=== PATIENT | female | born 1940 | race Hispanic/Latino ===

== ENCOUNTER 2020-09-05 13:20 | Outpatient (CLI) | payer MEDICARE | END 2020-09-05 13:21 | disposition home or self-care (01) | LOC: BRENFP 13:20 | PROVIDERS: ATTEND Family Medicine | DX: R06.00 Dyspnea, unspecified (principal) | CPT/HCPCS: 71046 ==

== ENCOUNTER 2020-10-18 15:08 | Outpatient (CLI) | payer MEDICARE ==
[2020-10-18 16:51] LABS: #Basophils 0.1 10x3/uL (0.0-0.2); #Eosinphils 0.2 10x3/uL (0.0-0.5); #Monocytes 0.9 10x3/uL (0.0-1.1); #Neutrophils 4.8 10x3/uL (1.5-8.4); %Basophils 1.2 % (0.0-2.0); %Eosinophils 2.2 % (0.0-6.0); %Lymphocytes 23.9 % (18.0-47.0); %Monocytes 10.9 % (0.0-10.0); %Neutrophils 61.5 % (40.0-75.0); Hemoglobin 14.2 g/dL (12.0-15.5); Mean Corpuscular HGB CONC 32.4 g/dL (32.0-36.0); Mean Corpuscular Hemoglobin 30.2 pg (27.0-33.0); Mean Corpuscular Volume 93.2 fl (81.6-98.3); Mean Platelet Volume 9.9 fl (7.4-10.4); Platelet Count 379 10x3/uL (150-450); RBC Distribution Width 12.6 % (11.5-14.5); White Blood Cell (WBC) Count 7.8 10x3/uL (3.5-10.5)
[2020-10-18 17:06] LABS: Anion Gap 15 mmol/L (10-20); BUN (Urea Nitrogen) 17 mg/dL (9.8-20.1); Calc. Creatinine Clearance 0 mL/min (70-130); Calcium 10.2 mg/dL (7.8-10.44); Carbon Dioxide 23 mmol/L (23-31); Chloride 105 mmol/L (98-107); Glucose 92 mg/dL (83-110); Potassium 4.5 mmol/L (3.5-5.1); Sodium 138 mmol/L (136-145)
[2020-10-19 16:43] LABS: SARS-CoV-2 PCR by NAA Not Detected (NotDetected)
== END 2020-10-18 15:09 | disposition home or self-care (01) ==
LOC: LABBT 15:08
PROVIDERS: ATTEND Internal Medicine Cardiovascular Disease
DX: Z01.812 Encounter for preprocedural laboratory examination (principal); Z20.822 Contact with and (suspected) exposure to COVID-19
CPT/HCPCS: 80048; 85025; U0003; U0005

== ENCOUNTER 2020-10-23 10:17 | Day surgery (SDC) | payer MEDICARE ==
[2020-10-22 11:05] VITALS: BMI 26.6
[2020-10-23] MEDS ORDERED: Midazolam HCl 2 mg/2 ml Vial ONE (10:27)
[2020-10-23] MEDS ORDERED: Fentanyl 100 MCG/2 ML VIAL ONE (10:27)
[2020-10-23] MEDS ORDERED: Lidocaine 1% PF 5 ML VIAL ONE (12:17)
[2020-10-23] MEDS ORDERED: PROPOFOL 200 MG/20 ML VIAL ONE (12:17)
== END 2020-10-23 13:45 | disposition home or self-care (01) ==
LOC: CCL 10:17
PROVIDERS: ATTEND Internal Medicine Cardiovascular Disease
PROC: B246ZZ4 Ultrasonography of Right and Left Heart, Transesophageal (ICD-10-PCS; principal; 2020-10-23)
DX: I51.1 Rupture of chordae tendineae, not elsewhere classified (principal); I10 Essential (primary) hypertension; Q24.5 Malformation of coronary vessels; E78.5 Hyperlipidemia, unspecified; K21.9 Gastro-esophageal reflux disease without esophagitis; M19.90 Unspecified osteoarthritis, unspecified site; E03.9 Hypothyroidism, unspecified; I25.10 Atherosclerotic heart disease of native coronary artery without angina pectoris; Z87.891 Personal history of nicotine dependence; Z79.899 Other long term (current) drug therapy; Z88.5 Allergy status to narcotic agent
CPT/HCPCS: 36415; 87040; 93312; J2250; J2704; J3010